=== PATIENT | male | born 1955 | race Caucasian/White ===

== ENCOUNTER 2023-11-01 15:12 | Outpatient (CLI) | payer MEDICARE, OTHER ==
[~2023-11-01 15:12] MED LIST: Magnevist 469MG/ML 20 ML VIAL ONE
== END 2023-11-01 15:13 | disposition home or self-care (01) ==
LOC: CSHMRI 15:12
PROVIDERS: ATTEND Family Medicine
DX: H53.2 Diplopia (principal); J34.1 Cyst and mucocele of nose and nasal sinus; Q28.3 Other malformations of cerebral vessels
CPT/HCPCS: 70553; 76377; 82565; A9579

== ENCOUNTER 2024-03-28 12:09 | Outpatient (CLI) | payer MEDICARE, OTHER | END 2024-03-28 12:10 | disposition home or self-care (01) | LOC: CSHULT 12:09 | PROVIDERS: ATTEND Psychiatry & Neurology Neurology | DX: H53.2 Diplopia (principal) | CPT/HCPCS: 93306; 93880 ==

== ENCOUNTER 2024-03-29 08:19 | Outpatient (CLI) | payer MEDICARE, OTHER | END 2024-03-29 08:20 | disposition home or self-care (01) | LOC: CSHMRI 08:19 | PROVIDERS: ATTEND Psychiatry & Neurology Neurology | DX: H53.2 Diplopia (principal) | CPT/HCPCS: 70544 ==